=== PATIENT | female | born 1980 | race Caucasian/White ===

== ENCOUNTER 2017-09-20 19:08 | Inpatient (IN) | END 2017-09-23 17:46 | disposition home or self-care (01) | DRG 775 ==

== ENCOUNTER 2018-04-22 05:56 | Day surgery (SDC) | payer OTHER ==
[~2018-04-22] VITALS: Ht 157.5 cm; Wt 64.5 kg
[2018-04-22] VITALS (14 sets, daily range): BP systolic 97–115; BP diastolic 59–70; PULSE 72–92; RESP 16–21; Ht 157.5 cm; Wt 64.5 kg
[~2018-04-22 05:56] MED LIST: PREN-39 PO
[2018-04-22] MEDS ORDERED: ACETAMINOPHEN 500 MG TAB PO STA (06:47)
[2018-04-22] MEDS ORDERED: BUPIVACAINE 0.5%/EPI (SDV) 30 ML INJ INJ ONE (06:49)
[2018-04-22] MEDS ORDERED: DESFLURANE 15 MIN ONE (07:00)
[2018-04-22] MEDS ORDERED: BUPIVACAINE 0.5%/EPI (SDV) 30 ML INJ ONE (07:06)
--- NOTE | 2018-04-22 07:12 | PREAC ---
Date/Time of Note Date/Time of Note DATE: 04/22/18 TIME: 07:11 Anesthesia Eval and Record Evaluation Time Pre-Procedure Interview DATE: 04/22/18 TIME: 07:11 Age 38 Sex female NPO: 8 hrs Preoperative diagnosis elective sterilization Planned procedure laparoscopic bilateral tubal fulguration Past Medical History Past Medical History: None Surgery & Anesthesia Issues No known issue Meds Anticoagulation: No Beta Taniya within 24 hr: No Reason Beta Taniya not given: Pt. not on B-Taniya Discontinued Reported Medications Vits W-Ca,Fe,Fa(<1MG) ( Vitamins) 1 Tab Tablet, 1 TAB PO DAILY for 7 Days 10/30/14 Meds reviewed: Yes Allergies Coded Allergies: No Known Allergy (Unverified , 04/22/18) Allergies Reviewed: Yes Labs/Studies Labs Reviewed: Reviewed by anesthesiologist test: Negative Pre-procedure Exam Airway: Adequate mouth opening, Adequate thyromental dist Mallampati: Mallampati II Teeth: Abnormal (broken upper tooth) Lung: Normal Heart: Normal ASA Physical Status ASA physical status: 1 Emergency: None Planned Anesthetic General/MAC: ETT Pre-operative Attestations Prior to commencing anesthesia and surgery, the patient was re-evaluated, there was verification of: *The patient's identity *The results of appropriate recent lab work and preoperative vital signs *The above evaluation not changing prior to induction *Anesthetic plan, risk benefits, alternative and complications discussed with patient/family; questions answered; patient/family understands, accepts and wishes to proceed. [employer] Representative used CRISTIAN HOLT Apr 22, 2018 07:12
[2018-04-22] MEDS ORDERED: ROCURONIUM 50 MG INJ ONE (07:23)
[2018-04-22] MEDS ORDERED: PROPOFOL 40 ML ONE (07:23)
[2018-04-22] MEDS ORDERED: CEFAZOLIN 1 GM INJ ONE (07:23)
[2018-04-22] MEDS ORDERED: LIDOCAINE 2% (SDV) 5 ML INJ ONE (07:23)
[2018-04-22] MEDS ORDERED: MIDAZOLAM 1 MG/ML 2 ML INJ ONE (07:24)
[2018-04-22] MEDS ORDERED: ONDANSETRON 4 MG INJ ONE (07:24)
[2018-04-22] MEDS ORDERED: DEXAMETHASONE 4 MG/ML 5 ML INJ ONE (07:24)
[2018-04-22] MEDS ORDERED: FAMOTIDINE 20 MG INJ ONE (07:24)
[2018-04-22] MEDS ORDERED: FENTAnyl 50 MCG/ML VIAL ONE (07:24)
[2018-04-22] MEDS ORDERED: ALBUTEROL 0.083% (NEB) 2.5 MG/3 ML AMP HHN PRN (07:30)
[2018-04-22] MEDS ORDERED: FENTAnyl 50 MCG/ML VIAL IV PRN ×2 (07:30)
[2018-04-22] MEDS ORDERED: ONDANSETRON 4 MG INJ IV PRN (07:30)
[2018-04-22] MEDS ORDERED: LABETALOL HCL 20MG INJ IV PRN (07:30)
[2018-04-22] MEDS ORDERED: DIPHENHYDRAMINE 50 MG INJ IV PRN (07:30)
[2018-04-22] MEDS ORDERED: morphine (1 MG/ML) 10ML SYRINGE IV PRN ×2 (07:30)
[2018-04-22] MEDS ORDERED: HYDROmorphONE 1 MG/5 ML IV SYRINGE IV PRN (07:30)
[2018-04-22] MEDS ORDERED: MEPERIDINE 25 MG INJ IV PRN (07:30)
[2018-04-22] MEDS ORDERED: OXYCODONE/ACETAMINOPHEN (5/325) TAB PO PRN ×2 (07:30)
[2018-04-22] MEDS ORDERED: ROPIVACAINE 0.5 % 30 ML VIAL ONE (07:34)
[2018-04-22] MEDS ORDERED: METOCLOPRAMIDE 10 MG INJ ONE (07:48)
--- NOTE | 2018-04-22 08:26 | OPR ---
Date/Time of Note Date/Time of Note DATE: 04/22/18 TIME: 08:21 Operative Report Procedure Date: Apr 22, 2018 Preoperative Diagnosis Patient desires permanent sterilization. Postoperative Diagnosis Patient desires permanent sterilization. Operation/Procedure Performed Bilateral Salpingectomies Surgeon Silva Del Cid MD Catalogue Maker none Anesthesia Type: general Estimated Blood Loss: minimal Transfusion none Specimen segments of bilateral tubes Grafts/Implants none Tubes/Drains none Complications none Pt Condition Post Procedure: stable Disposition: PACU Procedure Description FINDINGS: Normal tubes, ovaries bilaterally. Normal uterus. CONSENT: Please see my preop H and P consent in the office for the consent process. DESCRIPTION OF PROCEDURE: She was taken to operating room and general anesthesia was induced. She was prepped and draped in the usual sterile fashion in dorsal lithotomy position. Surgical time-out was done. Anterior lip of the cervix was grasped using a single-tooth tenaculum, and a HUMI was inserted in normal fashion. The tenaculum was removed. There was no bleeding from the cervix. The patient already had a Green catheter as well. Gloves were changed. A 5 mm incision was developed inside the umbilicus. A blunt trocar was inserted in the normal fashion. Intraperitoneal position was confirmed using the laparoscope. Pneumoperitoneum was obtained. The patient was placed in Trendelenburg position. A second trocar was inserted under direct visualization of the laparoscope at the pubic hairline in the midline. Right salpingectomy was performed by coagulating and transecting across the tube and then coagulating and transecting the mesosalpinx at all times hugging the tube. the transected portion was removed and sent to path. the edges of the mesosalpinx were coagulated again for abundance of caution. There was no bleeding. Same procedure was done on the contralateral side. All instruments removed under direct visualization of the laparoscope after pneumoperitoneum was released. There was no bleeding. Skin closed using 4-0 Monocryl. Then 10 mL 0.25% Marcaine with epinephrine was injected at the incision sites. HUMI was removed. There was no bleeding from the vagina. Patient tolerated the procedure well. SILVA DEL CID MD Apr 22, 2018 08:26
--- NOTE | 2018-04-22 08:35 | PAC ---
Date/Time of Note Date/Time of Note DATE: 04/22/18 TIME: 08:34 Post-Anesthesia Notes Post-Anesthesia Note Last documented vital signs Vital Signs Date Temp Pulse Resp B/P Pulse Ox O2 O2 Flow FiO2 Time (MAP) Delivery Rate 04/22/18 98.0 99. 73 104 16 18 115/70 99 99 face 07:29 081 1 (85) 106 mask 8L Activity: WNL Respiratory function: WNL Cardiovascular function: WNL Mental status: Baseline Pain reasonably controlled: Yes Hydration appropriate: Yes Nausea/Vomiting absent: Yes CRISTIAN HOLT Apr 22, 2018 08:34
[2018-04-22] MEDS: HYDROmorphONE 1 MG/5 ML IV SYRINGE IV PRN ×2 (08:42→08:48)
== END 2018-04-22 11:33 | disposition home or self-care (01) ==
LOC: SDS 05:56
PROVIDERS: ATTEND Specialist
DX: Z30.2 Encounter for sterilization (principal)
CPT/HCPCS: 58661; J0690; J1170; J2250; J2405; J2765; J2795; J3010; Z7512; Z7610; 88302; J1100